=== PATIENT | female | born 1945 | race Caucasian/White ===

== ENCOUNTER → 2017-04-10 | Outpatient (CLI) | payer OTHER | LOC: FIMAGING 11:39 | PROVIDERS: ATTEND Obstetrics & Gynecology | DX: Z12.31 Encounter for screening mammogram for malignant neoplasm of breast (principal) | CPT/HCPCS: G0202 ==

== ENCOUNTER → 2018-02-18 | Outpatient (CLI) | payer OTHER | LOC: FIMAGING 10:45 | PROVIDERS: ATTEND Orthopaedic Surgery | DX: Z01.818 Encounter for other preprocedural examination (principal); M17.11 Unilateral primary osteoarthritis, right knee ==

== ENCOUNTER → 2018-12-23 | Outpatient (CLI) | payer OTHER | LOC: BMCIMAGING 11:06 | PROVIDERS: ATTEND Internal Medicine Rheumatology | DX: M17.12 Unilateral primary osteoarthritis, left knee (principal) ==